=== PATIENT | female | born 1970 | race Caucasian/White ===

== ENCOUNTER 2017-05-19 16:21 | Emergency (ER) | payer MEDICAID ==
[2017-05-19] MEDS ORDERED: ATROVENT IH ONE (17:56)
[2017-05-19] MEDS ORDERED: PROVENTIL IH ONE (17:56)
[2017-05-19] MEDS ORDERED: NACL 0.9% 250ML 250 ML IV ONE (17:56)
[2017-05-19] MEDS ORDERED: ADRENALINE P/F SUB-Q ONE (17:56)
--- NOTE | 2017-05-19 17:57 | Emergency Department Report ---
ED General Adult HPI - General Chief complaint: Adult Asthma Stated complaint: COLLIN Time Seen by Provider: 05/19/17 17:46 Source: patient, EMS (ems notes not available at time of chart dictation), RN notes reviewed Mode of arrival: Stretcher Limitations: No Limitations - History of Present Illness Initial comments: This is a 46-year-old female, the patient is previously on known to this provider. Patient is brought to the hospital by EMS for cough, wheezing, shortness of breath. Her symptoms have been going on for around a month. They' re intermittent. They worse with physical exertion. It decreased with rest. EMS verbally reported to me that they gave steroids, albuterol, magnesium. Patient denies headache, neck pain, chest pain, abdominal pain, further reports that she is not been , reports that she does not take control tablets, and denies pulmonary embolus and DVT risk factors. -: Gradual, week(s) Severity scale (0 -10): 0 Consistency: constant Improves with: medication, rest Worsens with: movement Associated Symptoms: cough, shortness of breath. denies: confusion, chest pain , diaphoresis, fever/chills, headaches, loss of appetite, malaise, nausea/ vomiting, rash, seizure, syncope, weakness - Related Data Previous Rx's Medication Instructions Recorded Last Taken Type HYDROcodone/APAP 10-325 [[place] 1 each PO Q6HR PRN #20 tablet 02/08/14 02/15/14 Rx 10-325 mg TAB] HYDROcodone/ACETAMINOPHEN [Lortab 1 each PO Q6H #12 tablet 02/15/14 Unknown Rx 7.5-325 mg Tablet] Methocarbamol [Robaxin] 750 mg PO BID #20 tab 02/15/14 Unknown Rx Naproxen [Naprosyn] 500 mg PO BID #20 tablet 02/15/14 Unknown Rx Albuterol Sulfate [Albuterol 0.63% 0.63 mg IH Q4HR PRN #2 ml 05/19/17 Unknown Rx NEBS] Albuterol Sulfate [Proair 90 mcg IH Q4HR PRN #2 aer.pow.ba 05/19/17 Unknown Rx Respiclick] Benzonatate [Tessalon Perles] 100 mg PO Q8HR PRN #30 capsule 05/19/17 Unknown Rx Ipratropium [place] [Atrovent Hfa] 12.9 gm IH Q4HR #2 hfa.aer.ad 05/19/17 Unknown Rx Ipratropium [Atrovent NEB] 0.5 mg IH Q4HR #2 ml 05/19/17 Unknown Rx Nebulizer [Compact Compressor 1 each MC QDAY #1 each 05/19/17 Unknown Rx Nebulizer] predniSONE [Deltasone] 40 mg PO QDAY #8 tab 05/19/17 Unknown Rx Allergies Allergy/AdvReac Type Severity Reaction Status Date / Time No Known Allergies Allergy Verified 02/04/14 06:44 ED Review of Systems ROS: Stated complaint: COLLIN Other details as noted in HPI ED Past Medical Hx - Past Medical History Hx Hypertension: No Hx Congestive Heart Failure: No Hx Pulmonary Embolism: No Hx Arthritis: No - Surgical History Hx Coronary Stent: No Hx Open Heart Surgery: No Hx Pacemaker: No Hx Internal Defibrillator: No Hx Cholecystectomy: No Hx Appendectomy: No Hx Breast Surgery: No - Social History Smoking Status: Never Smoker Substance Use Type: None - Medications Home Medications: Home Medications Medication Instructions Recorded Confirmed Last Taken Type HYDROcodone/APAP 10-325 [[place] 1 each PO Q6HR PRN #20 tablet 02/08/14 02/15/14 02/15/14 Rx 10-325 mg TAB] HYDROcodone/ACETAMINOPHEN [Lortab 1 each PO Q6H #12 tablet 02/15/14 Unknown Rx 7.5-325 mg Tablet] Methocarbamol [Robaxin] 750 mg PO BID #20 tab 02/15/14 Unknown Rx Naproxen [Naprosyn] 500 mg PO BID #20 tablet 02/15/14 Unknown Rx Albuterol Sulfate [Albuterol 0.63% 0.63 mg IH Q4HR PRN #2 ml 05/19/17 Unknown Rx NEBS] Albuterol Sulfate [Proair 90 mcg IH Q4HR PRN #2 aer.pow.ba 05/19/17 Unknown Rx Respiclick] Benzonatate [Tessalon Perles] 100 mg PO Q8HR PRN #30 capsule 05/19/17 Unknown Rx Ipratropium [place] [Atrovent Hfa] 12.9 gm IH Q4HR #2 hfa.aer.ad 05/19/17 Unknown Rx Ipratropium [Atrovent NEB] 0.5 mg IH Q4HR #2 ml 05/19/17 Unknown Rx Nebulizer [Compact Compressor 1 each MC QDAY #1 each 05/19/17 Unknown Rx Nebulizer] predniSONE [Deltasone] 40 mg PO QDAY #8 tab 05/19/17 Unknown Rx ED Physical Exam - General Limitations: No Limitations General appearance: alert, in no apparent distress - Head Head exam: Present: atraumatic, normocephalic - Eye Eye exam: Present: normal appearance, EOMI - ENT ENT exam: Present: normal exam, normal orophraynx, mucous membranes moist, normal external ear exam - Neck Neck exam: Present: normal inspection, full ROM - Respiratory Respiratory exam: Present: respiratory distress, wheezes, rhonchi - Cardiovascular Cardiovascular Exam: Present: regular rate, normal rhythm, normal heart sounds. Absent: bradycardia, tachycardia, irregular rhythm, systolic murmur, diastolic murmur, rubs, gallop - GI/Abdominal GI/Abdominal exam: Present: soft, normal bowel sounds. Absent: distended, tenderness, guarding, rebound, rigid, pulsatile mass - Extremities Exam Extremities exam: Present: normal inspection, full ROM, normal capillary refill. Absent: pedal edema, joint swelling, calf tenderness - Back Exam Back exam: Present: normal inspection, full ROM. Absent: tenderness, CVA tenderness (R), paraspinal tenderness, vertebral tenderness - Neurological Exam Neurological exam: Present: alert, oriented X3, CN II-XII intact, other ( Extraocular movements intact. Tongue midline. No facial droop. Facial sensation intact to light touch in the V1, V2, V3 distribution bilaterally. 5 and 5 strength in 4 extremities.. Sensation is intact to light touch in 4 extremities.). Absent: motor sensory deficit - Psychiatric Psychiatric exam: Present: anxious - Skin Skin exam: Present: warm, dry, intact, normal color. Absent: rash ED Course Vital Signs 05/19/17 05/19/17 05/19/17 17:26 18:04 18:56 Temperature 98.1 F Pulse Rate 87 Pulse Rate [ 88 Anterior Bilateral Throughout] Respiratory 17 18 Rate Respiratory 17 Rate [Anterior Bilateral Throughout] Blood Pressure 129/79 Blood Pressure 129/79 [Left] O2 Sat by Pulse 99 Oximetry 05/19/17 18:58 Temperature 97.6 F Pulse Rate 90 Pulse Rate [ Anterior Bilateral Throughout] Respiratory 17 Rate Respiratory Rate [Anterior Bilateral Throughout] Blood Pressure Blood Pressure 135/73 [Left] O2 Sat by Pulse 99 Oximetry - Reevaluation(s) Reevaluation #1: 05/19/17 18:26 Differential diagnosis, including but not limited to: Asthma exacerbation, bronchitis Assessment and plan: 46-year-old female with cough, wheezing, mucus production, presenting to the ER today with probable reactive airway disease,/asthma. She is afebrile with reassuring vital signs, does not have pulmonary embolus or DVT risk factors, low risk by well's criteria, and is perc negative. Patient is very medicated with albuterol prior to my arrival, she is also premedicated with magnesium and steroids, but is still wheezing. She is speaking in full sentences and playing on a cellular phone, but her pulmonary exam is quite impressive. She will therefore be given additional albuterol, Atrovent, tase epinephrine, x-ray of the chest, EKG, laboratory studies pending. Reevaluation #2: 05/19/17 19:10 The patient feels much improved. Wheezing has resolved. She is speaking in complete sentences. She indicates that she feels much better and she would like to go home. She will be discharged at this time with treatments for reactive lung disease. Return precautions reviewed. ED Medical Decision Making - Lab Data Result diagrams: 05/19/17 18:01 05/19/17 18:01 Vital Signs 05/19/17 05/19/17 17:26 18:04 Temperature 98.1 F Pulse Rate 87 Pulse Rate [ 88 Anterior Bilateral Throughout] Respiratory 17 Rate Respiratory 17 Rate [Anterior Bilateral Throughout] Blood Pressure 129/79 Blood Pressure 129/79 [Left] O2 Sat by Pulse 99 Oximetry Critical care attestation.: If time is entered above; I have spent that time in minutes in the direct care of this critically ill patient, excluding procedure time. ED Disposition Clinical Impression: Reactive airway disease Disposition: DC-01 TO HOME OR SELFCARE Is pt being admited?: No Does the pt Need Aspirin: No Condition: Good Instructions: Asthma (ED) Additional Instructions: Take the breathing medications as directed. Take cough medication as needed/ directed. Take steroids as directed. Follow-up with a primary care doctor within the next 7-10 days. Return to the ER right away with fevers, chills, lethargy, irritability, productive vomiting, confusion, change in mental status , inability to tolerate liquids or vomiting. Referrals: PRIMARY CARE, [Primary Care Provider] - 3-5 Days WENDY TALAMANTES MD [Staff Physician] - 3-5 Days [facility] [Provider Group] - 3-5 Days
[2017-05-19] MEDS ORDERED: NACL 0.9% 500 ML 500 ML ONE (18:07)
[2017-05-19 18:40] LABS: Basophils % (Auto) 0.3 % (0.0-1.8); Eosinophils # (Auto) 0.7 K/mm3 (0.0-0.4); Eosinophils % (Auto) 5.5 % (0.0-4.3); Hematocrit 38.1 % (30.3-42.9); Hemoglobin 12.6 gm/dl (10.1-14.3); Lymphocytes # (Auto) 1.4 K/mm3 (1.2-5.4); Lymphocytes % (Auto) 11.7 % (13.4-35.0); Mean Corpuscular HGB Conc 33 % (30-34); Mean Corpuscular Hemoglobin 29 pg (28-32); Mean Corpuscular Volume 88 fl (79-97); Monocytes # (Auto) 0.2 K/mm3 (0.0-0.8); Monocytes % (Auto) 1.3 % (0.0-7.3); Platelet Count 356 K/mm3 (140-440); Red Blood Count 4.33 M/mm3 (3.65-5.03); Red Cell Distribution Width 12.5 % (13.2-15.2)
[2017-05-19 18:52] LABS: BUN/Creatinine Ratio 24; Blood Urea Nitrogen 12 mg/dL (7-17); Calcium 8.9 mg/dL (8.4-10.2); Hemolysis Index 0
[2017-05-19 19:21] LABS: INR 0.91 (0.87-1.13)
[2017-05-19 19:38] VITALS: BP 130/76
--- NOTE | 2017-05-20 08:45 | XRay Report ---
FINAL REPORT PROCEDURE: XR CHEST 1V AP TECHNIQUE: Chest radiograph anteroposterior view. CPT 41765 HISTORY: asthma COMPARISON: No prior studies are available for comparison. FINDINGS: Heart: Normal. Mediastinum/Vessels: Normal. Lungs/Pleural space: Normal. Bony thorax: No acute osseous abnormality. Life support devices: None. IMPRESSION: No radiographically evident acute cardiopulmonary disease.
== END 2017-05-19 19:36 | disposition home or self-care (01) ==
LOC: ED 16:21
DX: J45.909 Unspecified asthma, uncomplicated (principal)
CPT/HCPCS: 36415; 71045; 80048; 85025; 85610; 93005; 93010; 94640; 96372; 99284; J0171; J7040

== ENCOUNTER 2020-01-12 06:37 | Emergency (ER) | payer SELFPAY ==
[2020-01-12] MEDS ORDERED: ALBUTEROL 2.5 MG/3 ML NEBU IH ONE (07:01)
[2020-01-12] MEDS ORDERED: IPRATROPIUM 0.02% NEBU 2.5 ML IH ONE (07:01)
--- NOTE | 2020-01-12 07:05 | Emergency Department Report ---
ED Shortness of Breath HPI - General Stated Complaint: ASTHMA COMPLICATIONS Time Seen by Provider: 01/12/20 06:57 - History of Present Illness Initial Comments: 49-year-old female with history of asthma presents to ED via EMS with difficulty breathing. Patient states she began having some wheezing at approximately 2 AM. Patient reports no relief with her breathing treatments at home. EMS administered mag sulfate 2 g, albuterol 5 mg, Solu-Medrol 125 mg. Patient denies any fever. She reports cough associated with her asthma attack. She denies any known exposure to anyone who has tested positive for COVID-19. MD Complaint: "asthma attack" -: This morning Severity: moderate Consistency: constant Improves With: bronchodilators Worsens With: exertion Known History Of: asthma Associated Symptoms: cough Treatments Prior to Arrival: bronchodilator, other (Mag sulfate, Solu-Medrol) - Related Data Home Oxygen Therapy: No Previous Rx's Medication Instructions Recorded Last Taken Type HYDROcodone/APAP 10-325 [[place] 1 each PO Q6HR PRN #20 tablet 02/08/14 02/15/14 Rx 10-325 mg TAB] HYDROcodone/ACETAMINOPHEN [Lortab 1 each PO Q6H #12 tablet 02/15/14 Unknown Rx 7.5-325 mg Tablet] Naproxen [Naprosyn] 500 mg PO BID #20 tablet 02/15/14 Unknown Rx methOCARBAMOL [Robaxin] 750 mg PO BID #20 tab 02/15/14 Unknown Rx Albuterol Sulfate [Albuterol 0.63% 0.63 mg IH Q4HR PRN #2 ml 05/19/17 Unknown Rx NEBS] Albuterol Sulfate [Proair 90 mcg IH Q4HR PRN #2 aer.pow.ba 05/19/17 Unknown Rx Respiclick] Benzonatate [Tessalon Perles] 100 mg PO Q8HR PRN #30 capsule 05/19/17 Unknown Rx Ipratropium [place] [Atrovent Hfa] 12.9 gm IH Q4HR #2 hfa.aer.ad 05/19/17 Unknown Rx Ipratropium [Atrovent NEB] 0.5 mg IH Q4HR #2 ml 05/19/17 Unknown Rx Nebulizer [Compact Compressor 1 each MC QDAY #1 each 05/19/17 Unknown Rx Nebulizer] predniSONE [Deltasone] 40 mg PO QDAY #8 tab 05/19/17 Unknown Rx Albuterol Sulfate [Proventil Hfa] 2 puff IH Q4HR PRN #1 hfa.aer.ad 01/12/20 Unknown Rx predniSONE [Deltasone] 50 mg PO QDAY #5 tab 01/12/20 Unknown Rx Allergies Allergy/AdvReac Type Severity Reaction Status Date / Time No Known Allergies Allergy Verified 02/04/14 06:44 ED Review of Systems ROS: Stated complaint: ASTHMA COMPLICATIONS Other details as noted in HPI Comment: All other systems reviewed and negative Constitutional: denies: fever Respiratory: cough, wheezing ED Past Medical Hx - Past Medical History Hx Hypertension: No Hx Congestive Heart Failure: No Hx Pulmonary Embolism: No Hx Arthritis: No - Surgical History Hx Coronary Stent: No Hx Open Heart Surgery: No Hx Pacemaker: No Hx Internal Defibrillator: No Hx Cholecystectomy: No Hx Appendectomy: No Hx Breast Surgery: No - Social History Smoking Status: Never Smoker Substance Use Type: None - Medications Home Medications: Home Medications Medication Instructions Recorded Confirmed Last Taken Type HYDROcodone/APAP 10-325 [[place] 1 each PO Q6HR PRN #20 tablet 02/08/14 02/15/14 02/15/14 Rx 10-325 mg TAB] HYDROcodone/ACETAMINOPHEN [Lortab 1 each PO Q6H #12 tablet 02/15/14 Unknown Rx 7.5-325 mg Tablet] Naproxen [Naprosyn] 500 mg PO BID #20 tablet 02/15/14 Unknown Rx methOCARBAMOL [Robaxin] 750 mg PO BID #20 tab 02/15/14 Unknown Rx Albuterol Sulfate [Albuterol 0.63% 0.63 mg IH Q4HR PRN #2 ml 05/19/17 Unknown Rx NEBS] Albuterol Sulfate [Proair 90 mcg IH Q4HR PRN #2 aer.pow.ba 05/19/17 Unknown Rx Respiclick] Benzonatate [Tessalon Perles] 100 mg PO Q8HR PRN #30 capsule 05/19/17 Unknown Rx Ipratropium [place] [Atrovent Hfa] 12.9 gm IH Q4HR #2 hfa.aer.ad 05/19/17 Unknown Rx Ipratropium [Atrovent NEB] 0.5 mg IH Q4HR #2 ml 05/19/17 Unknown Rx Nebulizer [Compact Compressor 1 each MC QDAY #1 each 05/19/17 Unknown Rx Nebulizer] predniSONE [Deltasone] 40 mg PO QDAY #8 tab 05/19/17 Unknown Rx Albuterol Sulfate [Proventil Hfa] 2 puff IH Q4HR PRN #1 hfa.aer.ad 01/12/20 Unknown Rx predniSONE [Deltasone] 50 mg PO QDAY #5 tab 01/12/20 Unknown Rx ED Physical Exam - General General appearance: alert, in no apparent distress - Head Head exam: Present: atraumatic, normocephalic - Eye Eye exam: Present: normal appearance, EOMI - ENT ENT exam: Present: mucous membranes moist - Neck Neck exam: Present: normal inspection - Respiratory Respiratory exam: Present: wheezes - Cardiovascular Cardiovascular Exam: Present: normal rhythm, tachycardia - GI/Abdominal GI/Abdominal exam: Present: soft. Absent: distended, tenderness - Extremities Exam Extremities exam: Present: normal inspection - Neurological Exam Neurological exam: Present: alert, oriented X3 - Psychiatric Psychiatric exam: Present: normal affect, normal mood - Skin Skin exam: Present: warm, dry, intact, normal color ED Course Vital Signs 01/12/20 01/12/20 01/12/20 07:01 07:02 07:06 Temperature 97.6 F Pulse Rate 112 H 113 H Pulse Rate [ 108 H Anterior Bilateral Throughout] Respiratory 16 16 Rate Respiratory 15 Rate [Anterior Bilateral Throughout] Blood Pressure 142/94 142/94 Blood Pressure 142/94 [Left] O2 Sat by Pulse 100 100 Oximetry 01/12/20 01/12/20 01/12/20 07:15 07:30 07:45 Temperature Pulse Rate 103 H 103 H 107 H Pulse Rate [ Anterior Bilateral Throughout] Respiratory 10 L 12 14 Rate Respiratory Rate [Anterior Bilateral Throughout] Blood Pressure 136/94 138/78 146/76 Blood Pressure [Left] O2 Sat by Pulse 97 97 98 Oximetry 01/12/20 01/12/20 08:00 08:10 Temperature Pulse Rate 89 Pulse Rate [ Anterior Bilateral Throughout] Respiratory 15 17 Rate Respiratory Rate [Anterior Bilateral Throughout] Blood Pressure 140/72 Blood Pressure [Left] O2 Sat by Pulse 98 Oximetry ED Medical Decision Making - Radiology Data Radiology results: report reviewed, image reviewed - Medical Decision Making 49-year-old female with asthma exacerbation. Patient received albuterol nebs, Solu-Medrol, mag sulfate in route from EMS. Patient received additional nebulizer treatment here in the ED. Chest x-ray is negative for any acute findings. At this time, patient is feeling much better. Wheezing has resolved. O2 sats are normal on room air. Will discharge home at this time with p rescriptions. Outpatient follow-up advised, return precautions given. - Differential Diagnosis Asthma, pneumonia, pulmonary edema Critical care attestation.: If time is entered above; I have spent that time in minutes in the direct care of this critically ill patient, excluding procedure time. ED Disposition Clinical Impression: Acute asthma exacerbation Disposition: DC-01 TO HOME OR SELFCARE Is pt being admited?: No Condition: Stable Instructions: Asthma (ED) Referrals: RANDY KITCHEN MD [Primary Care Provider] - 3-5 Days PRIMARY CAREMD [Referring] - 3-5 Days Time of Disposition: 09:00
--- NOTE | 2020-01-12 08:01 | XRay Report ---
CHEST 1 VIEW INDICATION: sob. COMPARISON: 05/19/2017 FINDINGS: SUPPORT DEVICES: None. HEART: Within normal limits. LUNGS/PLEURA: No acute air space or interstitial disease. ADDITIONAL FINDINGS: None. IMPRESSION: 1. No acute findings. Signer Name: Fitz Franco MD Signed: 01/12/2020 7:57 AM Workstation Name: [id number]
[2020-01-12 09:21] VITALS: BP 145/91
== END 2020-01-12 09:22 | disposition home or self-care (01) ==
LOC: ED 06:37
DX: J45.901 Unspecified asthma with (acute) exacerbation (principal); Z79.899 Other long term (current) drug therapy
CPT/HCPCS: 71045; 94640; 94644